=== PATIENT | male | born 1975 | race Caucasian/White ===

== ENCOUNTER 2017-08-14 14:04 | Inpatient (IN) | payer BC ==
[~2017-08-14] VITALS: Ht 165.1 cm; Wt 71.2 kg
--- OUTSIDE RECORDS SUMMARY | 2017-08-14 14:24 | XMS REPORT | Clinical Summary ---
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 Active Rita Blackwell Postgastric surgery syndromes RHINITIS 472.0 Resolved Rita Blackwell Chronic rhinitis OTITIS EXTERNA, RIGHT 380.10 Resolved Rita Blackwell Infective otitis externa, unspecified SINUSITIS 473.9 Resolved Rita Blackwell Unspecified sinusitis (chronic) BRONCHITIS 490 Resolved Rita Blackwell Bronchitis, not specified as acute or chronic HEADACHE 784.0 Resolved Rita Blackwell Headache LOSS, HEARING NOS 389.9 Resolved Rita Blackwell Unspecified hearing loss SINUSITIS, SPHENOIDAL, ACUTE 461.3 Resolved Rita Blackwell Acute sphenoidal sinusitis FOLLICULITIS, CHRONIC 704.8 Resolved Rita Blackwell Other specified diseases of hair and hair follicles CELLULITIS 682.9 Resolved Rita Blackwell Cellulitis and abscess of unspecified sites URTICARIA, ACUTE 708.9 Resolved Rita Blackwell Unspecified urticaria BURSITIS, LEFT ELBOW 726.33 Resolved Rita Blackwell Olecranon bursitis HEALTH SCREENING V70.0 Resolved Rita Blackwell Routine general medical examination at a health care facility HSV 054.9 Active Rita Blackwell Herpes simplex without mention of complication KNEE PAIN 719.46 Resolved Rita Blackwell Pain in joint involving lower leg DEHYDRATION 276.51 Active Rita Blackwell Dehydration RENAL CALCULUS 592.0 Active iRta Blackwell Calculus of kidney Medication List Medication Instructions Start Date Stop Date Generic Name NDC Status Provider Patient Instruction AUGMENTIN 500-125 MG TAB 1 PO BID AMOXICILLIN-POT CLAVULANATE 49296841554 No Longer Active Rita Blackwell ALDARA 5 % CREA apply nightly IMIQUIMOD 31235997980 Active Rita Blackwell ZOVIRAX 5 % CREA Apply to affected areas TID for one week. 12/05 ACYCLOVIR 99322435366 No Longer Active Rita Blackwell JACKSON-D 60-120 MG TB12 1 PO Q12hrs prn FEXOFENADINE- PSEUDOEPHEDRINE 86472909374 No Longer Active Rita Blackwell PREDNISONE 20 MG TAB 3 pills daily at once for 3 days, 2 pills daily at once for 3 days, 1 once daily for 3 days PREDNISONE 64798468586 No Longer Active Rita Blackwell PREDNISONE 20 MG TAB 3 pills daily at once for 3 days, 2 pills daily at once for 3 days, 1 once daily for 3 days PREDNISONE 66360797801 No Longer Active Rita Blackwell COLESTID 1 GM TABS 1 tablet daily COLESTIPOL HCL 74543690875 Active Cheryl Freedman JACKSON 180 MG TABS 1 PO QD FEXOFENADINE HCL 84530697096 Active Rita RANGEL NASAL SPRAY (DEXAMETHASONE, GENTAMICIN, SALINE) 2 puffs each nostril TID for [address] RANGEL NASAL SPRAY ( DEXAMETHASONE, GENTAMICIN, SALINE) No Longer Active Rita Blackwell AUGMENTIN 875-125 MG TAB 1 PO BID AMOXICILLIN-POT CLAVULANATE 04337094514 No Longer Active Rita Blackwell EXCEDRIN TENSION HEADACHE 500-65 MG TABS prn ACETAMINOPHEN- CAFFEINE 27599190907 Active Rita Blackwell CODICLEAR DH 5-100 MG/5ML SYRP 5 cc Po Q4-6prn HYDROCODONE-GUAIFENESIN 46936173395 No Longer Active Rita Blackwell AUGMENTIN 875-125 MG TAB 1 PO BID AMOXICILLIN-POT CLAVULANATE 31500203758 No Longer Active Rita RANGEL NASAL SPRAY (DEXAMETHASONE, GENTAMICIN, SALINE) 2 puffs each nostril BID DR. RANGEL NASAL SPRAY (DEXAMETHASONE, GENTAMICIN, SALINE) No Longer Active Rita RANGEL NASAL SPRAY (DEXAMETHASONE, GENTAMICIN, SALINE) 2 puffs each nostril TID for [address] RANGEL NASAL SPRAY ( DEXAMETHASONE, GENTAMICIN, SALINE) No Longer Active Anjelica Fiore CILOXAN 0.3 % SOLN 2 drops right ear QID for 7 days CIPROFLOXACIN HCL 48480641291 No Longer Active Rita Blackwell QUESTRAN LIGHT 4 GM PACK 1 scoop in 1/2 cup of orange juice BID CHOLESTYRAMINE LIGHT 59397569186 No Longer Active Rita Blackwell NASONEX 50 MCG/ACT SUSP 2 puffs each nostril QD prn MOMETASONE FUROATE 42618059833 Active Rita Cristina Blackwell Vital Signs Date Name Value Unit Range Description blood pressure, diastolic - 8462-4 86 mm[Hg] BP sanchez blood pressure, systolic - 8480-6 110 mm[Hg] BP sys pulse rate E&M - 8867-4 70 /min Heart rate respiratory rate E&M - 9279-1 14 /min Resp rate weight E&M - 3141-9 165 [lb_av] Weight Measured blood pressure, diastolic - 8462-4 82 mm[Hg] BP sanchez blood pressure, systolic - 8480-6 122 mm[Hg] BP sys pulse rate E&M - 8867-4 80 /min Heart rate respiratory rate E&M - 9279-1 14 /min Resp rate temperature E&M 98.3 [degF] Body temperature weight E&M - 3141-9 164 [lb_av] Weight Measured blood pressure, diastolic - 8462-4 78 mm[Hg] BP sanchez blood pressure, systolic - 8480-6 140 mm[Hg] BP sys pulse rate E&M - 8867-4 80 /min Heart rate respiratory rate E&M - 9279-1 14 /min Resp rate temperature E&M 98.6 [degF] Body temperature weight E&M - 3141-9 156 [lb_av] Weight Measured Diagnostic Results Date Name Value Unit Range Description Clinical Lists Update: CBC,CMP,UA ER LABS - Chemistry Estimated Glomerular Filtration Rate (calc) 61 mL/min/1.73m2 glucose, plasma fasting 85 mg/dL albumin, serum 4.5 g/dL alkaline phosphatase, serum 85 U/L urea nitrogen, blood 20 mg/dL calcium, serum 9.5 mg/dL chloride, serum 111 mmol/L carbon dioxide, venous blood 19 mmol/L anion gap, serum 24 sodium, serum 150 mmol/L bilirubin, serum, total 0.4 mg/dL alanine aminotransferase (SGPT), serum 21 U/L aspartate aminotransferase (SGOT), serum 19 U/L protein, total, serum 6.6 g/dL potassium, serum 4.0 mmol/L creatinine, serum 1.30 mg/dL Clinical Lists Update: CBC,CMP,UA ER LABS - Hematology erythrocyte (RBC) count 4.79 10*6/mm3 leukocyte count, blood 8.55 10*3/mm3 mean corpuscular volume, RBC 87.5 fL red blood cell distribution width 12.5 % hemoglobin, blood 14.4 g/dL platelet count 194 10*3/mm3 hematocrit, blood 41.9 % Clinical Lists Update: CBC,CMP,UA ER LABS - Urinalysis blood in urine (hemoglobin) by dipstick 2+ mucus on urinalysis 2+ epithelial cells, urine 0-2 /[LPF] bacteria, urine microscopy neg RBC urine by microscopy TNTC WBC urine on microscopy 0-2 {Cells}/[HPF] appearance, urine CLEAR YELLOW urobilinogen, urine, semiquantitative (dipstick) 0.2 specific gravity, urine >1.030 pH, urine, semiquantitative 6.5 nitrite, urine, semiquantitative neg ketones, urine, by test strip trace bilirubin, urine neg glucose, urine, semiquantitative neg protein, urine, semiquantitative (dipstick) neg Clinical Lists Update: CMP,UA - Chemistry alkaline phosphatase, serum 70 U/L albumin, serum 4.5 g/dL aspartate aminotransferase (SGOT), serum 15 U/L bilirubin, serum, total 0.4 mg/dL protein, total, serum 6.5 g/dL sodium, serum 140 mmol/L chloride, serum 106 mmol/L potassium, serum 4.0 mmol/L urea nitrogen, blood 17 mg/dL anion gap, serum 9 creatinine, serum 1.1 mg/dL calcium, serum 9.4 mg/dL glucose, plasma fasting 104 mg/dL carbon dioxide, venous blood 29.0 mmol/L Estimated Glomerular Filtration Rate (calc) 76 mL/min/1.73m2 alanine aminotransferase (SGPT), serum 16 U/L Clinical Lists Update: CMP,UA - Urinalysis appearance, urine Clear Yellow WBC urine on microscopy none {Cells}/[HPF] RBC urine by microscopy none bacteria, urine microscopy none protein, urine, semiquantitative (dipstick) neg hyaline casts, urine none /[LPF] epithelial cells, urine 0-5 /[LPF] mucus on urinalysis none blood in urine (hemoglobin) by dipstick neg urobilinogen, urine, semiquantitative (dipstick) 0.2 specific gravity, urine <1.005 pH, urine, semiquantitative 5.5 nitrite, urine, semiquantitative neg ketones, urine, by test strip neg bilirubin, urine neg glucose, urine, semiquantitative neg Office Visit: Dr Blackwell's Check Up: Established Patient Visit - Urinalysis protein, urine, semiquantitative (dipstick) neg glucose, urine, semiquantitative neg bilirubin, urine neg ketones, urine, by test strip neg nitrite, urine, semiquantitative neg pH, urine, semiquantitative 7 specific gravity, urine 1.005 urobilinogen, urine, semiquantitative (dipstick) normal appearance, urine Clear Yellow WBC urine on microscopy 0-2 {Cells}/[HPF] RBC urine by microscopy 2-5 hyaline casts, urine none /[LPF] mucus on urinalysis neg blood in urine (hemoglobin) by dipstick 2+ bacteria, urine microscopy neg Encounters Code Encounter Date Provider Facility CPT-72019 Ofc Vst, Est Level IV 16:28:34 VOCATIONAL PSYCHOLOGIST Rita KOEHLER OFFICE CPT-21449 Ofc Vst, Est Level IV 10:18:47 VOCATIONAL PSYCHOLOGIST Rita Blackwell DO, FACP CPT-51130 Ofc Vst, Est Level III 17:11:12 CDT Rita Blackwell DO, FACP CPT-96327 Ofc Vst, Est Level III 15:49:53 VOCATIONAL PSYCHOLOGIST Rita Blackwell DO, FACP CPT-94397 Ofc Vst, Est Level III 14:36:32 VOCATIONAL PSYCHOLOGIST Rita Blackwell DO, FACP CPT-12464 Ofc Vst, Est Level III 16:14:03 CDT Rita Blackwell DO, FACP CPT-27752 Ofc Vst, Est Level IV 16:05:04 CDT Rita Blackwell [place] [facility] CPT-32918 Ofc Vst, Est Level III 16:37:54 VOCATIONAL PSYCHOLOGIST Rita Blackwell [facility] CPT-93541 Ofc Vst, Est Level IV 14:39:22 VOCATIONAL PSYCHOLOGIST Rita Blackwell DO, FACP CPT-53207 Ofc Vst, Est Level III 12:26:50 VOCATIONAL PSYCHOLOGIST Rita Blackwell [facility] [place] CPT-97594 Ofc Vst, Est Level III 09:55:46 VOCATIONAL PSYCHOLOGIST Rita Cristina Blackwell [facility] [place] CPT-37120 Ofc Vst, Est Level II 09:21:40 CDT [facility] Cristina Blackwell [facility] [place] CPT-87811 Ofc Vst, Est Level III 10:41:43 CDT [facility] Cristina Blackwell [facility] [place] Procedures Code Procedure Name Date Entry Date Standard Description CPT-18319 EKG w/ Interpretation 13:28:10 CDT CPT-34155 Preventive, Est, (40-64) 13:28:10 CDT CPT-53351 Preventive, Est, (18-39) 11:38:33 CDT CPT-79865 Injection 16:14:03 CDT CPT-99507 Handling of specimen from office to lab 09:38:03 CDT CPT-19549 Biopsy, skin/subcut/mucous membrane; sngl lsn 09:38:03 CDT
--- OUTSIDE RECORDS SUMMARY | 2017-08-14 14:24 | XMS REPORT | Clinical Summary ---
Author Author User, MYRNA Organization [facility] [place] Address Unknown Phone Unavailable Allergies, Adverse Reactions, [...] Rita Blackwell Dehydration RENAL CALCULUS 592.0 Active Rita Blackwell Calculus of kidney Medication List Medication Instructions Start Date Stop Date Generic Name NDC Status Provider Patient Instruction AUGMENTIN 500-125 MG TAB 1 PO BID AMOXICILLIN-POT CLAVULANATE 03808874702 No Longer Active Rita Blackwell ALDARA 5 % CREA apply nightly IMIQUIMOD 04487244679 Active Rita Blackwell ZOVIRAX 5 % CREA Apply to affected areas TID for one week. 12/05 ACYCLOVIR 76763576022 No Longer Active Rita Blackwell JACKSON-D 60-120 MG TB12 1 PO Q12hrs prn FEXOFENADINE- PSEUDOEPHEDRINE 75138641616 No Longer Active Rita Blackwell PREDNISONE 20 MG TAB 3 pills daily at once for 3 days, 2 pills daily at once for 3 days, 1 once daily for 3 days PREDNISONE 96646816165 No Longer Active Rita Blackwell PREDNISONE 20 MG TAB 3 pills daily at once for 3 days, 2 pills daily at once for 3 days, 1 once daily for 3 days PREDNISONE 77858963227 No Longer Active Rita Blackwell COLESTID 1 GM TABS 1 tablet daily COLESTIPOL HCL 68121747578 Active Cheryl Freedman JACKSON 180 MG TABS 1 PO QD FEXOFENADINE HCL 39941029920 Active Rita RANGEL NASAL SPRAY (DEXAMETHASONE, GENTAMICIN, SALINE) 2 puffs each nostril TID for [address] RANGEL NASAL SPRAY ( DEXAMETHASONE, GENTAMICIN, SALINE) No Longer Active Rita Blackwell AUGMENTIN 875-125 MG TAB 1 PO BID AMOXICILLIN-POT CLAVULANATE 54271762582 No Longer Active Rita Blackwell EXCEDRIN TENSION HEADACHE 500-65 MG TABS prn ACETAMINOPHEN- CAFFEINE 35544299508 Active Rita Blackwell CODICLEAR DH 5-100 MG/5ML SYRP 5 cc Po Q4-6prn HYDROCODONE-GUAIFENESIN 98592409118 No Longer Active Rita Blackwell AUGMENTIN 875-125 MG TAB 1 PO BID AMOXICILLIN-POT CLAVULANATE 61035130831 No Longer Active Rita RANGEL NASAL SPRAY [...] ear QID for 7 days CIPROFLOXACIN HCL 77172469184 No Longer Active Rita Blackwell QUESTRAN LIGHT 4 GM PACK 1 scoop in 1/2 cup of orange juice BID CHOLESTYRAMINE LIGHT 13159029510 No Longer Active Rita Blackwell NASONEX 50 MCG/ACT SUSP 2 puffs each nostril QD prn MOMETASONE FUROATE 01455063803 Active Rita Cristina Blackwell Vital Signs Date [...] neg Encounters Code Encounter Date Provider Facility CPT-85987 Ofc Vst, Est Level IV 16:28:34 NET DEVELOPMENT MANAGER Rita KOEHLER OFFICE CPT-45558 Ofc Vst, Est Level IV 10:18:47 NET DEVELOPMENT MANAGER Rita Blackwell DO, FACP CPT-10327 Ofc Vst, Est Level III 17:11:12 CDT Rita Blackwell DO, FACP CPT-66015 Ofc Vst, Est Level III 15:49:53 NET DEVELOPMENT MANAGER Rita Blackwell DO, FACP CPT-22067 Ofc Vst, Est Level III 14:36:32 NET DEVELOPMENT MANAGER Rita Blackwell DO, FACP CPT-45439 Ofc Vst, Est Level III 16:14:03 CDT Rita Blackwell DO, FACP CPT-54979 Ofc Vst, Est Level IV 16:05:04 CDT Rita Blackwell [place] [facility] CPT-17844 Ofc Vst, Est Level III 16:37:54 NET DEVELOPMENT MANAGER Rita Blackwell [place] CPT-47981 Ofc Vst, Est Level IV 14:39:22 NET DEVELOPMENT MANAGER Rita Blackwell DO, FACP CPT-39309 Ofc Vst, Est Level III 12:26:50 NET DEVELOPMENT MANAGER Rita Blackwell [facility] [place] CPT-99003 Ofc Vst, Est Level III 09:55:46 NET DEVELOPMENT MANAGER Rita Cristina Blackwell [facility] [place] CPT-91340 Ofc Vst, Est Level II 09:21:40 CDT [facility] Cristina Blackwell [facility] [place] CPT-89211 Ofc Vst, Est Level III 10:41:43 CDT [facility] Cristina Blackwell [facility] [place] Procedures Code Procedure Name Date Entry Date Standard Description CPT-55667 EKG w/ Interpretation 13:28:10 CDT CPT-20828 Preventive, Est, (40-64) 13:28:10 CDT CPT-61321 Preventive, Est, (18-39) 11:38:33 CDT CPT-16270 Injection 16:14:03 CDT CPT-71153 Handling of specimen from office to lab 09:38:03 CDT CPT-22115 Biopsy, skin/subcut/mucous membrane; sngl lsn 09:38:03 CDT
--- OUTSIDE RECORDS SUMMARY | 2017-08-14 14:24 | XMS REPORT | Continuity of Care Document ---
Author Author [facility] Address Unknown Phone Unavailable Allergies Medications Problems Date Dx Coded Attending Type Code Diagnosis Diagnosed By 04/03/2014 DEBBIE TRACY DO V06.1 TDAP DX 08/06/2014 FAIRCHILD DO, KIRSTEN Ot 592.0 08/06/2014 FAIRCHILD DO, KIRSTEN Ot 592.0 08/14/2014 FAIRCHILD DO, KIRSTEN Ot 592.0 09/08/2014 FAIRCHILD DO, KIRSTEN Ot 592.0 09/08/2014 FAIRCHILD DO, KIRSTEN Ot 592.0 09/30/2014 FAIRCHILD DO, KIRSTEN Ot 592.0 09/29/2015 FAIRCHILD DO, KIRSTEN Ot N50.8 Procedures Results Encounters ACCT No. Visit Date/Time Discharge Status Pt. Type Provider Facility Loc./Unit Complaint [id number] 04/03/2014 16:51:00 04/03/2014 23: 59:59 CLS Outpatient DEBBIE TRACY DO [id number] 09/10/2015 13:12:00 2014 23:59:59 CLS Outpatient FAIRCHILD DO, KIRSTEN [facility] [id number] 09/08/2014 14:02:00 2013 23:59:59 CLS Outpatient FAIRCHILD DO, KIRSTEN [facility] [id number] 07/28/2014 15:25:00 2013 23:59:59 CLS Outpatient FAIRCHILD DO, KIRSTEN [facility]
[2017-08-14] MEDS ORDERED: COLE1TAB PO (14:44)
[2017-08-14] MEDS ORDERED: ONDANSETRON 4 MG/2 ML (SDV) Z0FRAN IVP PRN (14:45)
[2017-08-14 14:56] LABS: BASOPHILS % (AUTO) 0 % (0-10); EOSINOPHILS % (AUTO) 0 % (0-10); LYMPHOCYTES # (AUTO) 1.6 X 10^3 (1.0-4.0); LYMPHOCYTES % (AUTO) 15 % (12-44); MEAN CORPUSCULAR HEMOGLOBIN 31 PG (25-34); MEAN CORPUSCULAR HGB CONC 36 G/DL (32-36); MEAN CORPUSCULAR VOLUME 86 FL (80-99); MEAN PLATELET VOLUME 11.1 FL (7.4-10.4); MONOCYTES # (AUTO) 0.8 X 10^3 (0.0-1.0); MONOCYTES % (AUTO) 8 % (0-12); NEUTROPHILS # (AUTO) 8.5 X 10^3 (1.8-7.8); NEUTROPHILS % (AUTO) 77 % (42-75); PLATELET COUNT 230 10^3/uL (130-400); RED BLOOD COUNT 5.57 10^6/uL (4.35-5.85); RED CELL DISTRIBUTION WIDTH 12.6 % (10.0-14.5)
[2017-08-14] MEDS ORDERED: IOHEXOL 350 MG/ML 100 ML (OMNIPAQUE 350) VIAL IV ONE (15:00)
[2017-08-14] MEDS ORDERED: NS 100 ML (IVPB) BAG IV ONE (15:00)
[2017-08-14] MEDS: morphine INJ 4 MG/ML 1 ML (VIAL/SYRINGE) IVP PRN ×2 (15:09→16:13)
[2017-08-14 15:13] LABS: ALANINE AMINOTRANSFERASE 20 U/L (0-55); ANION GAP 12 MMOL/L (5-14); ASPARTATE AMINO TRANSFERASE 16 U/L (5-34); BILIRUBIN,TOTAL 0.8 MG/DL (0.1-1.0); BLOOD UREA NITROGEN 8 MG/DL (7-18); BUN/CREATININE RATIO 7; CALCIUM 10.4 MG/DL (8.5-10.1); CARBON DIOXIDE 27 MMOL/L (21-32); CHLORIDE 105 MMOL/L (98-107); CREATININE SERUM 1.17 MG/DL (0.60-1.30); GFR ESTIMATED > 60; GLUCOSE 108 MG/DL (70-105); POTASSIUM 3.9 MMOL/L (3.6-5.0); SODIUM 144 MMOL/L (135-145); TOTAL PROTEIN 8.4 GM/DL (6.4-8.2)
[2017-08-14] MEDS ORDERED: FLUT16SP22 NS (15:17)
[2017-08-14] MEDS ORDERED: PSEU120T53 PO (15:17)
[2017-08-14] MEDS ORDERED: LORA10TA76 PO (15:17)
--- NOTE | 2017-08-14 15:17 | History & Physical-Hospitalist ---
HPI History of Present Illness: HPI/Chief Complaint Pt is a 42yoCM with a PMH of cholecystectomy in 1999 with subsequent dumping syndrome. He started having epigastric abd pain on 08/12 which worsened 08/13 and into today. He has not had a BM since 08/10 and normally has a BM every day. He is not passing gas. He does not have any nausea. He was seen by his PCP today and sent here for concerns about a bowel obstruction. He has continued to eat normally throughout this and it has not made his symptoms worse. Source: patient Date Seen 08/14/17 Time Seen by Provider: 14:15 Attending Physician Diego Lopez MD PCP Rita Blackwell DO Referring Physician Date of Admission Aug 14, 2017 at 2:14 pm Home Medications & Allergies Home Medications Reviewed patient Home Medication Reconciliation Form Allergies Allergies Coded Allergies meperidine (Verified Allergy, Unknown, 08/14/17) Past Ifyqyon-Dkeukd-Lszvlq Hx Patient Social History Marrital Status: Alcohol Use: Occasionally Uses Alcohol Beverage of Choice: Beer Recreational Drug Use: No Smoking Status: Never a Smoker Physical Abuse Screen: No Sexual Abuse: No Recent Hopitalizations: No Seasonal Allergies Seasonal Allergies: Yes Surgeries Appendectomy, Gallbladder Respiratory No Cardiovascular No Neurological No Genitourinary No Gastrointestinal Yes Chronic Diarrhea (dumping syndrome), Gall Bladder Disease Musculoskeletal No Endocrine History of Endocrine Disorders: No HEENT History of HEENT Disorders: No Cancer No Psychosocial History of Psychiatric Problem: No Integumentary History of Skin or Integumenta: No Blood Transfusions History of Blood Disorders: No Adverse Reaction to a Blood Tr: No Family Medical History Significant Family History: Heart Disease, CAD Under 55 Years Old Family Hx: Cardiovascular disease 19 MOTHER (STENT PUT IN) Congenital heart disease 19 FATHER Diabetes mellitus 19 FATHER Hypercholesterolemia 19 FATHER 19 MOTHER Hypertension 19 FATHER Review of Systems Constitutional: chills, No fever EENTM: No blurred vision, No double vision, No nose congestion, No throat pain Respiratory: No cough, No dyspnea on exertion, No short of breath Cardiovascular: No chest pain, No edema, No palpitations Gastrointestinal: abdominal pain, constipation, No diarrhea, No nausea, No vomiting Genitourinary: No dysuria, No frequency Musculoskeletal: No joint pain, No muscle pain Skin: No lesions, No rash Psychiatric/Neurological: Denies Headache, Denies Numbness, Denies Tingling Physical Exam Physical Exam Vital Signs Capillary Refill : General Appearance: No Apparent Distress, WD/WN HEENT: PERRL/EOMI, Moist Mucous Membranes Neck: Non Tender, Supple Respiratory: Lungs Clear, No Respiratory Distress Cardiovascular: Regular Rate, Rhythm, No Murmur Gastrointestinal: Soft, Abnormal Bowel Sounds (quiet but present), No Distended , No Guarding, No Rebound, Tenderness (mild epigastric) Extremity: Normal Capillary Refill, No Calf Tenderness, No Pedal Edema Neurologic/Psychiatric: Alert, Oriented x3, Normal Mood/Affect Skin: Normal Color, Warm/Dry Results Results/Procedures Lab Laboratory Tests 08/14/17 14:50 Assessment/Plan Admission Diagnosis abd pain Diagnosis/Problems Diagnosis/Problems (1) Abdominal pain Status: Acute Assessment & Plan: Concern for obstruction given no BM or flatus in [address] Abd/Pelvis ordered Surgery consulted, appreciate recs Morphine prn pain Zofran prn nausea NPO Qualifiers: Qualified Codes: R10.13 - Epigastric pain (2) Postsurgical dumping syndrome Assessment & Plan: Normally has chronic diarrhea Hold colestipol (3) Prophylactic measure Assessment & Plan: SCDs 1/2 NS at 100ml/hr NPO Clinical Quality Measures DVT/VTE Risk/Contraindication: Risk Factor Score Per Nursin RFS Level Per Nursing on Admit: 1=Low/No VTE PPX DIEGO LOPEZ MD Aug 14, 2017 15:17
[2017-08-14] MEDS ORDERED: morphine INJ 4 MG/ML 1 ML (VIAL/SYRINGE) IVP NR (15:45)
[2017-08-14] MEDS ORDERED: morphine INJ 10 MG/ML 1ML (SYR OR VIAL) IVP PRN (15:45)
[2017-08-14 16:00] VITALS: BP 180/96
[2017-08-14] MEDS ORDERED: CATHETER FLUSH 10 ML SYR IV PRN (16:30)
[2017-08-14] MEDS ORDERED: fentaNYL INJECTION 100 MCG/2 ML AMP ONE (16:36)
[2017-08-14] MEDS ORDERED: INFLUENZA TRIvalent 2017-2018 0.5 ML/45 MCG SYR IM ONE (16:45)
[2017-08-14] MEDS ORDERED: fentaNYL INJECTION 100 MCG/2 ML AMP IVP PRN (17:00)
[2017-08-14] MEDS: 1/2 NS IV SOLUTION 1,000 ML IV SCH (17:02)
--- NOTE | 2017-08-14 17:32 | Diagnostic Imaging Report ---
PROCEDURE: CT abdomen and pelvis with contrast. TECHNIQUE: Multiple contiguous axial images were obtained through the abdomen and pelvis after administration of intravenous contrast. INDICATION: Severe abdominal pain for three days. FINDINGS: The gallbladder is absent. The liver and bile ducts are normal. The spleen, pancreas, and adrenals are normal. The kidneys, ureters, and bladder are normal. No bowel abnormality is seen with no obstruction present at this time. There is no free intraperitoneal air or fluid. IMPRESSION: No acute abnormality is seen. Dictated by: Dictated on workstation # [id number]
[2017-08-14] MEDS: PANTOPRAZOLE 40 MG/10 ML (PROTONIX) VIAL IV SCH (19:48)
[2017-08-14 20:00] VITALS: BP 133/84
--- NOTE | 2017-08-14 20:52 | Consultation ---
History of Present Illness History of Present Illness Patient Consulted On(simran/time) 08/14/17 20:46 Date Seen by Provider: Aug 14, 2017 Time Seen by Provider: 19:00 History of Present Illness Consult requested by Dr. Blackwell for epigastric abdominal pain possible small bowel obstruction. Patient is a 42-year-old male with past medical history significant for a cholecystectomy which patient later was having chest pains and elevated liver enzymes which he required ERCP. This occurred approximately 17 years ago. Patient has been having epigastric abdominal pain for 3 days which was varying in intensity but constant. Patient states is right in the middle of the epigastric region. There is no radiation of the pain. Patient states laying down sometimes "feel better but sitting up and movement makes it worse. Patient will have a lot of belching but has no nausea or emesis. Patient also notes that he has not had a bowel movement for approximately 3 years so days which she normally goes every day. Patient states that he is passing minimal flatus. He had a CT scan that did not demonstrate any acute abnormality. Patient denies any fever sweats chills shortness of breath or chest pain. Allergies and Home Medications Allergies Coded Allergies: meperidine (Verified Allergy, Unknown, 08/14/17) Home Medications Colestipol HCl 1 Gm Tablet, 1 GM PO DAILY, (Reported) Fluticasone Propionate 16 Gm [place].susp, 1 [place] NS DAILY, (Reported) Loratadine 10 Mg Tablet, 10 MG PO DAILY, (Reported) Pseudoephedrine HCl 120 Mg Tablet.er, 120 MG PO DAILY PRN for CONGESTION, ( Reported) Past [id number]-[id number]-Fozeby Hx Patient Social History Alcohol Use: Occasionally Uses Recreational Drug Use: No Smoking Status: Never a Smoker Recent Hopitalizations: No Physical Abuse Screen: No Sexual Abuse: No Seasonal Allergies Seasonal Allergies: Yes Surgeries Surgeries: Appendectomy, Gallbladder Respiratory History of Respiratory Disorde: No Cardiovascular History of Cardiac Disorders: No Neurological History of Neurological Disord: No Genitourinary History of Genitourinary Disor: No Gastrointestinal History of Gastrointestinal Di: Yes Gastrointestinal Disorders: Chronic Diarrhea (dumping syndrome), Gall Bladder Disease Musculoskeletal History of Musculoskeletal Dis: No Endocrine History of Endocrine Disorders: No HEENT History of HEENT Disorders: No Cancer History of Cancer: No Psychosocial History of Psychiatric Problem: No Integumentary History of Skin or Integumenta: No Blood Transfusions History of Blood Disorders: No Adverse Reaction to a Blood Tr: No Family Medical History Significant Family History: Heart Disease, CAD Under 55 Years Old Family Medial History: Cardiovascular disease 19 MOTHER (STENT PUT IN) Congenital heart disease 19 FATHER Diabetes mellitus 19 FATHER Hypercholesterolemia 19 FATHER 19 MOTHER Hypertension 19 FATHER Review of Systems-General Constitutional: see HPI EENTM: no symptoms reported Respiratory: no symptoms reported Cardiovascular: no symptoms reported Gastrointestinal: see HPI Genitourinary: no symptoms reported Musculoskeletal: no symptoms reported Skin: no symptoms reported Psychiatric/Neurological: No Symptoms Reported Physical Exam-General Problems Physical Exam Vital Signs Vital Sign - Last 12Hours 08/14/17 16:00 Temp 97.8 Pulse 52 Resp 20 B/P (MAP) 180/96 Pulse Ox 99 O2 Delivery Room Air Capillary Refill : General Appearance: no apparent distress HEENT: PERRL/EOMI Neck: normal inspection Respiratory: no respiratory distress, no accessory muscle use Cardiovascular: regular rate, rhythm Gastrointestinal: soft (slight tenderness in the epigastric region no guarding or rebounding no palpable masses no organomegaly) Rectal: deferred Back: no CVA tenderness Extremities: non-tender, normal inspection Neurologic/Psychiatric: storeroom attendant II-XII nml as tested, no motor/sensory deficits, alert, normal mood/affect, oriented x 3 Skin: warm/dry Data Review Labs Laboratory Tests 08/14/17 14:50: White Blood Count 11.0, Red Blood Count 5.57, Hemoglobin 17.0, Hematocrit 48, Mean Corpuscular Volume 86, Mean Corpuscular Hemoglobin 31, Mean Corpuscular Hemoglobin Concent 36, Red Cell Distribution Width 12.6, Platelet Count 230, Mean Platelet Volume 11.1H, Neutrophils (%) (Auto) 77H, Lymphocytes (%) (Auto) 15, Monocytes (%) (Auto) 8, Eosinophils (%) (Auto) 0, Basophils (%) (Auto) 0, Neutrophils # (Auto) 8.5H, Lymphocytes # (Auto) 1.6, Monocytes # (Auto) 0.8, Eosinophils # (Auto) 0.0, Basophils # (Auto) 0.0, Sodium Level 144, Potassium Level 3.9, Chloride Level 105, Carbon Dioxide Level 27, Anion Gap 12, Blood Urea Nitrogen 8, Creatinine 1.17, Estimat Glomerular Filtration Rate > 60, BUN/ Creatinine Ratio 7, Glucose Level 108H, Calcium Level 10.4H, Total Bilirubin 0.8 , Aspartate Amino Transf (AST/SGOT) 16, Alanine Aminotransferase (ALT/SGPT) 20, Alkaline Phosphatase 73, Troponin I < 0.30, Total Protein 8.4H, Albumin 5.0H, Lipase 17 Assessment/Plan Assessment/Plan Assessment/Plan Epigastric abdominal pain Patient's CT scan that was normal. His labs have no significant abnormality. Patient with epigastric pain that is persistent would recommend evaluating further with EGD. Risks and benefits were discussed with the patient and his which they understand. They wish to proceed with EGD tomorrow area patient to be improving after midnight. We'll start on Protonix 40 mg see if he has any improvement. Further Recommendations pending EGD. Clinical Quality Measures DVT/VTE Risk/Contraindication: Risk Factor Score Per Nursin RFS Level Per Nursing on Admit: 1=Low/No VTE PPX AROLDO RDZ DO Aug 14, 2017 20:52
[2017-08-15] VITALS: BP 122/78
[2017-08-15] MEDS: 1/2 NS IV SOLUTION 1,000 ML IV SCH (03:14)
[2017-08-15 04:25] VITALS: BP 127/82
[2017-08-15 07:10] LABS: PROTHROMBIN TIME PATIENT 13.5 SEC (12.2-14.7)
[2017-08-15 08:00] VITALS: BP 134/92
[2017-08-15] MEDS ORDERED: KETOROLAC 15 MG/ML VIAL IVP NR (08:00)
[2017-08-15] MEDS: PANTOPRAZOLE 40 MG/10 ML (PROTONIX) VIAL IV SCH (08:20)
--- NOTE | 2017-08-15 09:23 | Progress Note ---
Subjective Date Seen by Provider: Aug 15, 2017 Time Seen by Provider: 09:21 Subjective/Events-last exam still with epigastric pain but little bit better. Npo at this time. Still with belching. No nausea or vomiting. Does have headache. Denies fever sweats chills shortness of breath or chest pain. Objective Exam Vital Signs Date Time Temp Pulse Resp B/P (MAP) Pulse Ox O2 Delivery O2 Flow Rate FiO2 08/15/17 08:00 97.5 62 18 134/92 97 Room Air 08/15/17 04:25 98.4 72 18 127/82 98 Room Air 08/15/17 00:00 98.6 63 18 122/78 97 Room Air 08/14/17 20:00 98.3 60 22 133/84 92 Room Air 08/14/17 17:54 96 Room Air 08/14/17 16:00 97.8 52 20 180/96 99 Room Air Capillary Refill : General Appearance: No Apparent Distress, WD/WN HEENT: PERRL/EOMI, Moist Mucous Membranes Neck: Non Tender, Supple Respiratory: Lungs Clear, No Respiratory Distress Cardiovascular: Regular Rate, Rhythm, No Murmur Gastrointestinal: soft (slight tenderness in the epigastric region no guarding or rebounding no palpable masses no organomegaly) Extremity: Normal Capillary Refill, No Calf Tenderness, No Pedal Edema Neurologic/Psychiatric: Alert, Oriented x3, Normal Mood/Affect Skin: Normal Color, Warm/Dry Results Lab Laboratory Tests 08/14/17 14:50: White Blood Count 11.0, Red Blood Count 5.57, Hemoglobin 17.0, Hematocrit 48, Mean Corpuscular Volume 86, Mean Corpuscular Hemoglobin 31, Mean Corpuscular Hemoglobin Concent 36, Red Cell Distribution Width 12.6, Platelet Count 230, Mean Platelet Volume 11.1H, Neutrophils (%) (Auto) 77H, Lymphocytes (%) (Auto) 15, Monocytes (%) (Auto) 8, Eosinophils (%) (Auto) 0, Basophils (%) (Auto) 0, Neutrophils # (Auto) 8.5H, Lymphocytes # (Auto) 1.6, Monocytes # (Auto) 0.8, Eosinophils # (Auto) 0.0, Basophils # (Auto) 0.0, Sodium Level 144, Potassium Level 3.9, Chloride Level 105, Carbon Dioxide Level 27, Anion Gap 12, Blood Urea Nitrogen 8, Creatinine 1.17, Estimat Glomerular Filtration Rate > 60, BUN/ Creatinine Ratio 7, Glucose Level 108H, Calcium Level 10.4H, Total Bilirubin 0.8 , Aspartate Amino Transf (AST/SGOT) 16, Alanine Aminotransferase (ALT/SGPT) 20, Alkaline Phosphatase 73, Troponin I < 0.30, Total Protein 8.4H, Albumin 5.0H, Lipase 17 08/15/17 06:00: Prothrombin Time 13.5, INR Comment 1.0 Assessment/Plan Assessment/Plan Assessment/Plan Epigastric abdominal pain headache was given Toradol On protonix NPO Plan egd today Clinical Quality Measures DVT/VTE Risk/Contraindication: Risk Factor Score Per Nursin RFS Level Per Nursing on Admit: 1=Low/No VTE PPX AROLDO RDZ DO Aug 15, 2017 09:23
[2017-08-15] MEDS ORDERED: proPOfol 200 MG/20 ML (DIPRIVAN) VIAL IV ONE (09:28)
[2017-08-15] MEDS ORDERED: MIDAZOLAM 2 MG/2 ML (VERSED) VIAL ONE (09:29)
[2017-08-15] MEDS ORDERED: LACTATED RINGERS 1,000 ML IV ONE (09:30)
[2017-08-15] MEDS ORDERED: HURRICAINE EXT TUBE (BENZOCAINE) ONE (09:45)
[2017-08-15] MEDS ORDERED: HURRICAINE EXT TUBE (BENZOCAINE) XX ONE (10:15)
[2017-08-15] MEDS ORDERED: LACTATED RINGERS 1,000 ML IV SCH (10:15)
[2017-08-15 12:00] VITALS: BP 154/91
[2017-08-15] MEDS ORDERED: PANT40TA2 PO (12:40)
[2017-08-15] MEDS ORDERED: SUCR1TAB36 PO (12:40)
--- NOTE | 2017-08-15 12:51 | Discharge Summary-Hospitalist ---
Diagnosis/Chief Complaint Date of Admission Aug 14, 2017 at 2:14 pm Date of Discharge Discharge Date: Aug 15, 2017 Admission Diagnosis abd pain Discharge Diagnosis (1) Esophagitis determined by endoscopy Status: Acute Assessment & Plan: Biopsies taken Continue PPI Will follow up with Dr Lynch in 2 weeks Discussed importance of trial off PPI after 6 weeks of therapy (2) Gastritis Assessment & Plan: As above (3) Abdominal pain Status: Acute Assessment & Plan: CT Abd/Pelvis showed no acute pathology Surgery consulted, appreciate recs EGD showed gastritis and reflux esophagitis Started on PPI and carafate To follow up with Dr Lynch in 2 weeks (4) Postsurgical dumping syndrome Assessment & Plan: Will resume colestipol (5) Prophylactic measure Assessment & Plan: Regular diet (6) Elevated blood pressure reading Status: Acute Assessment & Plan: On initial reading, likely due to pain BPs remain in prehypertensive range Advised to monitor at home and follow with PCP. Discharge Summary Consultations Dr Lynch, surgery Discharge Physical Examination Allergies: Coded Allergies: meperidine (Verified Allergy, Unknown, 08/14/17) Vitals & I&Os Vital Signs Date Time Temp Pulse Resp B/P (MAP) Pulse Ox O2 Delivery O2 Flow Rate FiO2 08/15/17 09:00 Room Air 08/15/17 08:00 97.5 62 18 134/92 97 Hospital Course Pt is [id number] with a PMH of postsurgical dumping syndrome who presented with no BM or flatus for 4 days and severe epigastric pain. CT Abd/Pelvis showed no acute abnormalities and EGD was performed which revealed esophagitis and gastritis as discussed above. He will follow up with his PCP and Dr Lynch in the next 1-2 weeks. Labs (last 24 hrs) Laboratory Tests 08/14/17 14:50: White Blood Count 11.0, Red Blood Count 5.57, Hemoglobin 17.0, Hematocrit 48, Mean Corpuscular Volume 86, Mean Corpuscular Hemoglobin 31, Mean Corpuscular Hemoglobin Concent 36, Red Cell Distribution Width 12.6, Platelet Count 230, Mean Platelet Volume 11.1H, Neutrophils (%) (Auto) 77H, Lymphocytes (%) (Auto) 15, Monocytes (%) (Auto) 8, Eosinophils (%) (Auto) 0, Basophils (%) (Auto) 0, Neutrophils # (Auto) 8.5H, Lymphocytes # (Auto) 1.6, Monocytes # (Auto) 0.8, Eosinophils # (Auto) 0.0, Basophils # (Auto) 0.0, Sodium Level 144, Potassium Level 3.9, Chloride Level 105, Carbon Dioxide Level 27, Anion Gap 12, Blood Urea Nitrogen 8, Creatinine 1.17, Estimat Glomerular Filtration Rate > 60, BUN/ Creatinine Ratio 7, Glucose Level 108H, Calcium Level 10.4H, Total Bilirubin 0.8 , Aspartate Amino Transf (AST/SGOT) 16, Alanine Aminotransferase (ALT/SGPT) 20, Alkaline Phosphatase 73, Troponin I < 0.30, Total Protein 8.4H, Albumin 5.0H, Lipase 17 08/15/17 06:00: Prothrombin Time 13.5, INR Comment 1.0 Pending Labs Laboratory Tests 08/15/17 06:00: Prothrombin Time 13.5, INR Comment 1.0 Discharge Home Medications: Active Scripts Active Carafate (Sucralfate) 1 Gm Tablet 1 Gm PO ACHS 30 Days Protonix (Pantoprazole Sodium) 40 Mg Tablet.dr 40 Mg PO DAILY 30 Days Reported Sudafed 12 Hour (Pseudoephedrine HCl) 120 Mg Tablet.er 120 Mg PO DAILY PRN Fluticasone Propionate 16 Gm [place].susp 1 [place] NS DAILY Claritin (Loratadine) 10 Mg Tablet 10 Mg PO DAILY Colestipol HCl 1 Gm Tablet 1 Gm PO DAILY Instructions to patient/family Please see electronic discharge instructions given to patient. Clinical Quality Measures DVT/VTE Risk/Contraindication: Risk Factor Score Per Nursin RFS Level Per Nursing on Admit: 1=Low/No VTE PPX Copy Copies To 1: AROLDO LYNCH DO; KIRSTEN FAIRCHILD DO Problem Qualifiers (1) Gastritis: Gastritis type: other gastritis Chronicity: acute Gastritis bleeding: without bleeding Qualified Codes: K29.00 - Acute gastritis without bleeding (2) Abdominal pain: Abdominal location: epigastric Qualified Codes: R10.13 - Epigastric pain DIEGO GOODWIN MD Aug 15, 2017 12:51 pm
[2017-08-15 14:05] VITALS: BP 154/91
--- NOTE | 2017-08-15 14:24 | Progress Note-Post Operative ---
Post-Operative Progess Note Surgeon (s)/Binder And Wrapper Packer (s) Surgeon AROLDO RDZ DO Binder And Wrapper Packer: na Pre-Operative Diagnosis epigastric abdominal pain Post-Operative Diagnosis slight gastritis, hiatal hernia, reflux esophagitis Procedure & Operative Findings Date of Procedure 08/15/17 Procedure Performed/Findings egd c biopsies Anesthesia Type per engineering inspection assistant Estimated Blood Loss Estimated blood loss (mL): none Specimens/Packing Specimens Removed antrum,body, ge AROLDO RDZ DO Aug 15, 2017 14:24
--- NOTE | 2017-08-16 01:00 | OPERATIVE REPORT ---
DATE OF SERVICE: 08/15/2017 PREOPERATIVE DIAGNOSIS: Epigastric abdominal pain. POSTOPERATIVE DIAGNOSIS: Slight gastritis, hiatal hernia and reflux esophagitis. PROCEDURE: EGD with biopsies. SURGEON: Aroldo Lynch DO ANESTHESIA: Per CHANNEL DEVELOPMENT MANAGER. ESTIMATED BLOOD LOSS: None. COMPLICATIONS: None. SPECIMENS: Antrum, body and GE junction. INDICATIONS: The patient is a 42-year-old male who presented to the hospital with epigastric abdominal pain. CT scan was normal. The patient has already had his gallbladder removed. The patient recommended to have EGD performed for further evaluation. He understands risks and benefits of procedure and wished to proceed with procedure. Consent was signed in the chart. PROCEDURE: The patient was taken to the endoscopy suite, placed in left lateral recumbent position. Timeout was performed. Scope was inserted in mouth, down into esophagus, stomach and into the duodenum without difficulty. There were no polyps, mass or ulcerations within the duodenum. The scope was slowly retracted back into the stomach, which was further insufflated. The patient has some slight erythematous changes consistent with some slight gastritis. Biopsy of the antrum was obtained. Scope was also retroflexed also again noting some erythematous changes where a biopsy was obtained. Also noting a small hiatal hernia. There was no other pathology noted. The scope was then returned to its normal position, slowly withdrawn to the distal esophagus, which had some erythematous changes consistent with reflux esophagitis. Biopsy at the GE junction was obtained. The scope was slowly retracted back noting no other pathology. The patient tolerated procedure well without any complications and taken to recovery room in stable condition. RECOMMENDATIONS: The patient was started on Protonix 40 mg daily and Carafate 1 gram four times a day. We will see how is doing and follow up with biopsies in approximately 2 weeks. If he has any worsening of condition, he should be reevaluated at that time. Job ID: [id number] DocumentID: [id number] Dictated Date: 08/15/2017 14:26:49 Property Officer Date: 08/16/2017 00:59:27 Dictated By: AROLDO LYNCH DO
== END 2017-08-15 13:35 | disposition home or self-care (01) | DRG 392 ==
LOC: 4TH 14:14
PROVIDERS: ADMIT Family Medicine; ATTEND Family Medicine
PROC: 0DB78ZX Excision of Stomach, Pylorus, Via Natural or Artificial Opening Endoscopic, Diagnostic (ICD-10-PCS; 2017-08-15)
PROC: 0DB48ZX Excision of Esophagogastric Junction, Via Natural or Artificial Opening Endoscopic, Diagnostic (ICD-10-PCS; principal; 2017-08-15 09:35)
DX: K21.0 Gastro-esophageal reflux disease with esophagitis (principal); K29.00 Acute gastritis without bleeding; K44.9 Diaphragmatic hernia without obstruction or gangrene; K91.1 Postgastric surgery syndromes; R51 Headache
CPT/HCPCS: 36415; 74177; 80053; 83690; 84484; 85025; 85610

== ENCOUNTER → 2018-03-02 | Outpatient (CLI) | payer BC ==
[~2018-03-02] MED LIST: COLE1TAB PO; FLUT16SP22 NS; LORA10TA76 PO; PANT40TA2 PO; PSEU120T17 PO; SUCR1TAB36 PO
[2018-03-02 15:18] LABS: BASOPHILS % (AUTO) 1 % (0-10); EOSINOPHILS % (AUTO) 1 % (0-10); HEMATOCRIT 38 % (40-54); HEMOGLOBIN 13.8 G/DL (13.3-17.7); LYMPHOCYTES # (AUTO) 1.3 X 10^3 (1.0-4.0); LYMPHOCYTES % (AUTO) 25 % (12-44); MEAN CORPUSCULAR HEMOGLOBIN 31 PG (25-34); MEAN CORPUSCULAR HGB CONC 36 G/DL (32-36); MEAN CORPUSCULAR VOLUME 87 FL (80-99); MONOCYTES # (AUTO) 0.4 X 10^3 (0.0-1.0); MONOCYTES % (AUTO) 9 % (0-12); NEUTROPHILS # (AUTO) 3.3 X 10^3 (1.8-7.8); NEUTROPHILS % (AUTO) 65 % (42-75); PLATELET COUNT 180 10^3/uL (130-400); RED BLOOD COUNT 4.39 10^6/uL (4.35-5.85); RED CELL DISTRIBUTION WIDTH 12.4 % (10.0-14.5)
[2018-03-02 15:40] LABS: ALANINE AMINOTRANSFERASE 19 U/L (0-55); ALBUMIN 4.4 GM/DL (3.2-4.5); ALKALINE PHOSPHATASE 55 U/L (40-136); BILIRUBIN,TOTAL 0.6 MG/DL (0.1-1.0); BUN/CREATININE RATIO 14; CALCIUM 9.3 MG/DL (8.5-10.1); CARBON DIOXIDE 27 MMOL/L (21-32); CHLORIDE 110 MMOL/L (98-107); CREATININE SERUM 1.15 MG/DL (0.60-1.30); GFR ESTIMATED > 60; GLUCOSE 86 MG/DL (70-105); POTASSIUM 4.1 MMOL/L (3.6-5.0); SODIUM 143 MMOL/L (135-145); TOTAL PROTEIN 6.8 GM/DL (6.4-8.2)
[2018-03-02 15:59] LABS: FREE T4 (FREE THYROXINE) 1.09 NG/DL (0.70-1.48)
--- NOTE | 2018-03-02 16:09 | Diagnostic Imaging Report ---
INDICATION: Thyroiditis. Thyroid sonography performed in the routine fashion. FINDINGS: The right thyroid lobe measured 4.1 x 1.2 x 1.4 cm. The left thyroid lobe measured 4.9 x 1.3 x 1.6 cm. There is no focal thyroid lesion. IMPRESSION: Negative thyroid sonography. Dictated by: Dictated on workstation # [id number]
== END ==
LOC: RAD 14:30
PROVIDERS: ATTEND Internal Medicine
DX: E06.9 Thyroiditis, unspecified (principal)
CPT/HCPCS: 36415; 76536; 80053; 84439; 85025

== ENCOUNTER → 2019-06-06 | Outpatient (CLI) | payer BC ==
--- NOTE | 2019-06-06 16:59 | Cardiology Stress Test Report ---
Stress Test Report Date of Procedure/Referring: Date of Procedure: Jun 06, 2019 PCP Esteban Qureshi MD Admitting Physician Rita Blackwell DO Summary/Conclusion: Summary: In summary, the patient started exercising with a baseline heart rate, blood pressure and EKG mentioned above Patient was able to exercise for a total of minutes on Adalberto protocol, METs Maximum heart rate Maximum blood pressure Stress EKG Minimal nondiagnostic changes Recovery EKG Return to baseline Conclusion: 1. Good exercise tolerance for a total of minutes on Adalberto protocol, METs, achieving percent of maximum expected heart rate 2. Minimal nondiagnostic EKG changes with exercise returned to baseline during recovery 3. No arrhythmia was noted Esteban QURESHI MD Jun 06, 2019 16:59
== END ==
LOC: CARD 14:16
PROVIDERS: ATTEND Internal Medicine Interventional Cardiology
DX: Z15.89 Genetic susceptibility to other disease (principal)
CPT/HCPCS: 93017

== ENCOUNTER 2022-05-24 13:32 | Outpatient (RCR) | payer OTHER | END 2022-05-25 | disposition home or self-care (01) | PROVIDERS: ATTEND Podiatrist | DX: M72.2 Plantar fascial fibromatosis (principal) ==

== ENCOUNTER 2022-06-08 09:36 | Outpatient (RCR) | payer OTHER | END 2022-06-24 | disposition home or self-care (01) | PROVIDERS: ATTEND Podiatrist | DX: M72.2 Plantar fascial fibromatosis (principal) ==